=== PATIENT | female | born 1955 | race Caucasian/White ===

== ENCOUNTER 2017-05-20 15:12 | Emergency (ER) | payer OTHER ==
[2017-05-20 15:20] VITALS: RESP 16
--- NOTE | 2017-05-20 16:46 | EDPHY ---
H & P Smoking Status: Never smoked Time Seen by Provider: 05/20/17 15:32 HPI/ROS: CHIEF COMPLAINT: Swallowed crown HISTORY OF PRESENT ILLNESS: This is a 62-year-old female presenting to the emergency department here with her dentist status post questionable swallowed crown during procedure [id number]. Patient states that the crown popped loose and not sure if she swallowed it some coughing and some epigastric irritation but patient states she has a history of GERD. Denies any shortness of breath or chest pain REVIEW OF SYSTEMS: Constitutional: No fever, no chills. Eyes: No discharge. ENT: No sore throat. Cardiovascular: No chest pain, no palpitations. Respiratory: No cough, no shortness of breath. Gastrointestinal: No abdominal pain, no vomiting. Genitourinary: No hematuria. Musculoskeletal: No back pain. Skin: No rashes. Neurological: No headache. (Sharon Guerra) Physical Exam: General Appearance: Alert, no distress. Non ill-appearing Eyes: Pupils equal and round no pallor or injection. ENT, Mouth: Mucous membranes moist. Respiratory: There are no retractions, lungs are clear to auscultation. Cardiovascular: Regular rate and rhythm. Gastrointestinal: Abdomen is soft and nontender, no masses, bowel sounds normal. Neurological: No focal deficits. Skin: Warm and dry, no rashes. Musculoskeletal: Neck is supple nontender. Extremities: symmetrical, full range of motion. Psychiatric: Patient is oriented X 3, there is no agitation. (Sharon Guerra) Constitutional: Initial Vital Signs Temperature (C) 36.4 C 05/20/17 15:17 Heart Rate 81 05/20/17 15:17 Respiratory Rate 16 05/20/17 15:17 Blood Pressure 132/89 H 05/20/17 15:17 O2 Sat (%) 96 05/20/17 15:17 O2 Delivery Mode Room Air Allergies/Adverse Reactions: No Known Allergies Allergy (Unverified 05/20/17 15:19) Medical Decision Making - Diagnostics Imaging Results: Imaging Impressions Abdomen X-Ray 05/20/17 15:27 Impression: 1. No radiopaque foreign object. 2. Constipation. 3. Dextroscoliosis of the thoracolumbar spine. Chest X-Ray 05/20/17 16:35 Impression: Dental crown in the right lower lobe bronchus. Findings discussed with CLAU Johnson 05/20/2017 at 17:20. ED Course/Re-evaluation: I did not see this patient while she was in the emergency department. However her care was discussed with the nurse practitioner while the patient was in the department. I agree with treatment plan and management (Jomar Mathur) Discussed ED plan of care: KUB chest x-ray 171: Discussed x-ray with results foreign body noted in right lower lobe bronchus. 174: Spoke with Dr. Tobin Horan with pulmonology, patient to call his office 1st thing in the morning to set up an appointment for the bronchoscopy NPO after midnight 175: Discussed discharge plan with patient. Discharge home---> stable, airway patent nonlabored respiratory effort denies any chest pain. discussed all discharge instructions. (Sharon Guerra) Differential Diagnosis: Other differential diagnosis considered but not limited to foreign body esophagus, pneumonia, airway obstruction (Sharon Guerra) Departure - Departure Disposition: Home, Routine, Self-Care Clinical Impression: Foreign body in bronchus Qualifiers: Encounter type: initial encounter Qualified Code(s): T17.508A - Unspecified foreign body in bronchus causing other injury, initial encounter Condition: Good Instructions: Foreign Body Ingestion (ED) Additional Instructions: 1. I have spoken with Dr. Horan with Pulmonary he will be expecting her call tomorrow morning to set up a time for the bronchoscopy. The crown is large on the right side of your bronchus in the pulmonary system 2. No food or water after midnight. 3. If at any point tonight you feel chest pain shortness of breath any discomfort return to the emergency department Referrals: NONE *PRIMARY CARE P,. [Primary Care Provider] - As per Instructions Hola Horan MD [Medical Doctor] - As per Instructions
[2017-05-20 18:04] VITALS: BP 145/99; PULSE 80; TEMP 98.8; O2SAT 97
== END 2017-05-20 18:03 | disposition home or self-care (01) ==
DX: T17.508A Unspecified foreign body in bronchus causing other injury, initial encounter (principal); X58.XXXA Exposure to other specified factors, initial encounter

== ENCOUNTER 2017-05-21 10:24 | Day surgery (SDC) | payer OTHER ==
[2017-05-21] MEDS ORDERED: fentaNYL 100 MCG/2 ML INJ ONE ×2 (14:56→15:33)
[2017-05-21] MEDS ORDERED: MIDAZOLAM 2 MG/2 ML VIAL ONE ×2 (14:56→15:33)
[2017-05-21] MEDS ORDERED: LIDOCAINE 1% 300 MG/30 ML SDV ONE (15:36)
[2017-05-21 16:41] VITALS: BP 132/81; O2SAT 95
--- NOTE | 2017-05-22 03:59 | GCON ---
[f rep st] CONSULTATION HISTORY AND PHYSICAL/PULMONARY CONSULTATION DATE OF CONSULTATION: 05/21/2017 HISTORY: The patient is a very pleasant 62-year-old, who was at her dentist yesterday. A crown was being removed, popped off, and was aspirated into the airways. She presented to the emergency department yesterday evening. Chest x- ray was obtained. This showed a metal crown to be in the takeoff of the right lower lobe area/lower bronchus intermedius. The patient did have some associated cough and some phlegm. Pulmonary, Dr. Horan, was consulted last night and contacted me to arrange a bronchoscopy today. Bronchoscopy was arranged for 3 p.m. This is dictated separately. The patient' s crown was removed successfully. PAST MEDICAL HISTORY: Remarkable for chronic renal insufficiency. There is a history gastroesophageal reflux, hyperlipidemia, and some insomnia. MEDICATIONS: Include fish oil, docusate, ranitidine, pravastatin, nortriptyline , and herbal preparations and supplements. ALLERGIES: She has no known drug allergies. SOCIAL HISTORY: She is , never smoker. Significant alcohol is denied. FAMILY HISTORY: Negative/noncontributory. REVIEW OF SYSTEMS: She has had no fevers, chills or sweats. She denies any chest pain. There is no history of previous aspiration, no history of heart or lung disease. Ten point review of systems is otherwise negative. PHYSICAL EXAMINATION: GENERAL: Reveals a pleasant woman who is in no distress. She has no cough at the time that I saw her. VITAL SIGNS: Normal. She is slightly anxious with a blood pressure of approximately 140/90. Saturations on supplemental oxygen are 97%. HEENT: Unremarkable. There is no stridor. CHEST: Clear, but breath sounds are coarse on the right side. There is some mild congestion with voluntary cough. HEART: Regular in rate and rhythm without murmurs or gallops. ABDOMEN: Within normal limits. EXTREMITIES : Normal. NEUROLOGIC: Examination is normal. DATABASE: X-ray was reviewed with findings as outlined above. ASSESSMENT: Foreign body aspiration of a dental crown. Bronchoscopy is needed to remove this. PLAN: Bronchoscopy with foreign body removal. Copy requested to: [facility] /[id number]/MODL MTDD
--- NOTE | 2017-05-22 04:09 | GPN ---
[f rep st] PROCEDURE NOTE DATE OF PROCEDURE: 05/21/2017 PROCEDURE PERFORMED: Therapeutic bronchoscopy. INDICATION: Foreign body aspiration of a dental crown into the right lower lobe area. DESCRIPTION OF PROCEDURE: The procedure was performed in the endoscopy unit. Informed consent was obtained from the patient. 1% lidocaine was used for topical anesthesia, approximately 25 mL total. 2% lidocaine, 5 mL, was sprayed into the posterior oropharynx. Conscious sedation included 5 mg of Versed and 125 mcg of fentanyl. Appropriate time-out was performed. After adequate sedation and topical anesthesia, the fiberoptic bronchoscope was advanced via a bite block orally into the trachea and into the lower tracheobronchial tree bilaterally. The crown was found in the expected position at the orifice to the right lower lobe. There was some surrounding mucus without purulence. The airway was cleared of mucus. A biopsy forceps was used to grab the crown. This was accomplished however on several occasions the crown could not be brought up into the proximal airways without it dropping off. The patient was placed in Trendelenburg position, as the crown when it was dropped was re aspirated down into the right side. Eventually the crown was brought to the vocal cords and again lost there. It was then in the mid trachea. It was then grabbed with the forceps and gently taken out through the vocal cords and out of the airway. The crown was placed in a container and given back to the patient. Prior to the end of the procedure the bronchoscope was re passed into the right lower lobe distally and secretions removed. These were not purulent and no cultures were sent. Vital signs and oxygen saturations on supplemental oxygen remained normal throughout the procedure. ASSESSMENT: Successful removal of the aspirated crown into the right lower lobe. Following the procedure and after the patient had woken up, the findings were discussed with the patient and her . She was told to call if she were to develop post aspiration infection, bronchitis or pneumonia. This is unlikely. She was also told to report to her dentist that the crown had been successfully removed. COMPLICATIONS: There were no complications. /[id number]/MODL MTDD
== END 2017-05-21 16:43 | disposition home or self-care (01) ==
LOC: FSGY 10:24
PROVIDERS: ATTEND Internal Medicine Pulmonary Disease
PROC: 0BC68ZZ Extirpation of Matter from Right Lower Lobe Bronchus, Via Natural or Artificial Opening Endoscopic (ICD-10-PCS; principal; 2017-05-21 15:00)
DX: T17.898A Other foreign object in other parts of respiratory tract causing other injury, initial encounter (principal); Y92.531 Health care provider office as the place of occurrence of the external cause
CPT/HCPCS: J2250; J3010